=== PATIENT | female | born 1995 | race Caucasian/White ===

== ENCOUNTER 2017-10-29 09:45 | Outpatient (RCR) | payer OTHER, SELFPAY ==
--- NOTE | 2017-07-22 09:40 | PT.OIE ---
Current Diagnoses Sacrococcygeal disorders, not elsewhere classified (07/18/17) Provider Visit Care Team Role Provider Type Samantha Henry MD Attending Provider Physician Family Provider Primary Care Provider Specialty: Family Practice Address: [address] [place] [address], [id number] Email: [email or web address] Physical Therapy Initial Evaluation PT-OP-A Visit Information Start: 07/22/17 09:06 Freq: Status: Active Protocol: Document 07/18/17 11:15 [facility] (Rec: 07/22/17 09:38 [facility] [email or web address]) Out-Patient Physical Therapy Visit Information Visit Information Visit Type Initial Evaluation Visit Start Time 11:15 Visit Stop Time 12:00 Total Visit Minutes 45 Visit Number 1 Evaluation Information Evaluation Date 07/18/17 PT-OP-B Current Condition Start: 07/22/17 09:06 Freq: Status: Active Protocol: Document 07/18/17 11:15 [facility] (Rec: 07/22/17 09:38 [facility] [email or web address]) Current Condition History of Current Condition Onset Date March Current Complaints complaints of coccyx pain made worse with sitting History of Current Condition Bianca reports she began experiencing coccyx pain during intercourse in March. She has been having pain since that has not improved. 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 She does have a donut cushion for driving now that helps. Her symptoms have progressed to hip and SI pain as well now and she notes that jumping activities with her legs seperated increase her hip pain. She reports that she has never experienced tail bone pain before this episode Prior Treatments and Tests X-ray findings suggestive of anterior angulation with mild widening of the inferior coccygeal segments Treatment Goals Patient/Caregiver Goals Sandra has a goal of eliminating coccyx pain and being able to sit and drive without pain Current Functional Impairments (Reported) Functional Limitations- Work/School difficulty sitting for long durations to study and pain with driving PT-OP-C Subjective Start: 07/22/17 09:06 Freq: Status: Active Protocol: Document 07/18/17 11:15 [facility] (Rec: 07/22/17 09:38 [facility] [email or web address]) OP-PT Subjective Patient Comments Patient Comments Sandra reports pain in the coccyx rated 5/10 and pain across the SI joint rated 4/10 OP-PT Pain Assessment Pain Assessment Grid Paper Pain Assessment Grid Completed Yes Comments Pain Comments pain across the SI joint and coccyx PT-OP-F Manual Assessment Start: 07/22/17 09:06 Freq: Status: Active Protocol: Document 07/18/17 11:15 [facility] (Rec: 07/22/17 09:40 [facility] [email or web address]) Manual Assessments Soft Tissue Assessment Soft Tissue Mobility Assessment tightness of the piriformis right greater than left Joint Mobility Assessment Joint Mobility Assessment + ASLR test for SI instability L>R left leg longer in supine sacrum is rotated slightly to the left coccyx is sidebent to the left and flexed anteriorly PT-OP-J Posture/Palpation/Skin Start: 07/22/17 09:06 Freq: Status: Active Protocol: Document 07/18/17 11:15 [facility] (Rec: 07/22/17 09:38 [facility] [email or web address]) Palpation Assessment Location Two Palpation Location coccyx Palpation Findings Tenderness Palpation Details the coccyx is sidebend to the left and flexed anteriorly to papation One Palpation Location coccygeus muscle, obturator internus, piriformis Palpation Findings Soft Tissue Tightness Spasm Muscle Guarding Tenderness Palpation Details tenderness on either side of the coccyx and sacrum PT-OP-Q Treatments Start: 07/22/17 09:06 Freq: Status: Active Protocol: Document 07/18/17 11:15 [facility] (Rec: 07/22/17 09:38 [facility] [email or web address]) Therapeutic Exercises Supine Exercises 1 Supine Exercise Name HEP given: piriformis stretch, single knee to chest, and hamstring stretch Side bilateral Reps/Minutes hold 1-2 minutes each Manual Therapy Treatment Soft Tissue Mobilization 1 Body Location coccygeus musculature and obturator internus Mobilization Type Cross-Friction Myofascial Release Intensity/Depth Moderate Body Position Sidelying Joint Mobilizations 1 Joint inferior coccygeal joints side bend MET to the midline Direction towards the right Grade I Body Position Prone Comments contract relaxation of the pelvic floor with gentle mobilizations of the coccyx to the right PT-OP-R Modalities Start: 07/22/17 09:06 Freq: Status: Active Protocol: Document 07/18/17 11:15 [facility] (Rec: 07/22/17 09:38 [facility] [email or web address]) Ultrasound Therapy Treatment Left Treatment Duration (minutes) 8 Patient Position Prone Frequency Setting (mHz) 1 Mode Setting Continuous Intensity Setting (w/cm2) 1.5 Patient Tolerance Good Comment Treatment Comment ultrasound to the left coccygeus muscle PT-OP-T Assessment and Plan Start: 07/22/17 09:06 Freq: Status: Active Protocol: Document 07/18/17 11:15 [facility] (Rec: 07/22/17 09:38 [facility] [email or web address]) Physical Therapy Assessment Rehab Potential Rehabilitation Potential Excellent Evaluation Complexity Number of Personal Factors/Comorbidities 0 Number of Body Systems Impaired 1-2 Clinical Presentation at Evaluation Stable Impairments Impairments Functional Activities Pain Soft Tissue Mobility Strength Tone Goals Three Impairment left sidebent and forward bend coccyx Short Term Goal (STG) improve the alignement of the coccyx bone with stretches and manual therapy techniques STG Duration 5 weeks Two Impairment unstable SI joint with decreased transverse abdominal activation Short Term Goal (STG) The patient is educated on transverse abdominal stabilization and both march test and ASLR test is negative STG Duration 5 weeks One Impairment coccyx pain made worse with sitting and driving pain 5/10 Correction Goal (LTG) Bianca reports her pain levels have been reduced from 5/10 to 0-1/10 and she is able to sit and drive without increased pain LTG Duration 8 weeks Assessment Summary Assessment Sandra presents to physical therapy with signs and symptoms of coccyx dysfunction and muscle guarding around the coccyx. She is tight in the coccygeal musculature, piriformis and obturator internus from muscle spasm. The coccyx is palpated today to be left sidebend and forward flexed. I did begin with ultrasound and soft tissue work externally around the coccyx bone and sacrum. Bianca may benefit from a internal rectal coccyx release which I talked to her about doing next visit if she was comfortable with this. She was given a home program to begin stretching her posterior pelvic floor and hip musculature. She is also unstable in her SI joint and treatment will include improving core stability. Physical Therapy Plan Frequency and Duration Frequency of Treatment 1x/Week Duration of Treatment 8 weeks Plan of Care Start Date 07/18/17 Plan of Care End Date 09/12/17 Therapeutic Interventions Therapeutic Interventions Home Exercise Program Manual Therapy Neuromuscular Re-education Self-Care/Home Management Soft Tissue Mobilization Therapeutic Exercises Modalities Cold Pack/Ice Massage Ultrasound Provider Signature Date
--- NOTE | 2017-07-22 09:43 | PT.OPPOC ---
Current Diagnoses Sacrococcygeal disorders, not elsewhere classified (07/18/17) Provider Visit Care Team Role Provider Type Samantha Henry MD Attending Provider Physician Family Provider Primary Care Provider Specialty: Family Practice Address: [address] [place] [address], [phone] Email: [email or web address] Plan Of Care PT-OP-T Assessment and Plan Start: 07/22/17 09:06 Freq: Status: Active Protocol: Document 07/18/17 11:15 [facility] (Rec: 07/22/17 09:38 [facility] [email or web address]) Physical Therapy Assessment Rehab Potential Rehabilitation Potential Excellent Evaluation Complexity Number of Personal Factors/Comorbidities 0 Number of Body Systems Impaired 1-2 Clinical Presentation at Evaluation Stable Impairments Impairments Functional Activities Pain Soft Tissue Mobility Strength Tone Goals Three Impairment left sidebend and forward bend coccyx Short Term Goal (STG) improve the alignement of the coccyx bone with stretches and manual therapy techniques STG Duration 5 weeks Two Impairment unstable SI joint with decreased transverse abdominal activation Short Term Goal (STG) The patient is educated on transverse abdominal stabilization and both march test and ASLR test is negative STG Duration 5 weeks One Impairment coccyx pain made worse with sitting and driving pain 5/10 Director Of [employer] Goal (LTG) Bianca reports her pain levels have been reduced from 5/10 to 0-1/10 and she is able to sit and drive without increased pain LTG Duration 8 weeks Assessment Summary Assessment Sandra presents to physical therapy with signs and symptoms of cuccyx dysfunction and muscle guarding around the coccyx. She is tight in the coccygeal musculature, piriformis and obturator internus from muscle spasm. The coccyx is palpated today to be left sidebend and forward flexed. I did begin with ultrasound and soft tissue work externaly around the coccyx bone and sacrum. Bianca may benefit from a internal rectal coccyx release which I talked to her about doing next visit if she was comfortable with this. She was given a home program to begin streching her posterior pelvic floor and hip musculature. She is also unstable in her SI joint and treatment will include improving core stability. Physical Therapy Plan Frequency and Duration Frequency of Treatment 1x/Week Duration of Treatment 8 weeks Plan of Care Start Date 07/18/17 Plan of Care End Date 09/12/17 Therapeutic Interventions Therapeutic Interventions Home Exercise Program Manual Therapy Neuromuscular Re-education Self-Care/Home Management Soft Tissue Mobilization Therapeutic Exercises Modalities Cold Pack/Ice Massage Ultrasound Plan of Care Dates Plan of Care Start Date 07/18/17 Plan of Care End Date 09/12/17 Please Sign and Return: I have reviewed this Plan of Care and certify that the skilled therapy services above are required to meet the patient???s needs. Physician Signature Date Printed Name and Credentials
--- NOTE | 2017-07-24 14:17 | PT.OTN ---
Current Diagnoses Sacrococcygeal disorders, not elsewhere classified (07/24/17) Physical Therapy Treatment Note PT-OP-A Visit Information Start: 07/22/17 09:06 Freq: Status: Active Protocol: Document 07/24/17 14:08 [facility] (Rec: 07/24/17 14:14 [facility] [email or web address]) Out-Patient Physical Therapy Visit Information Visit Information Visit Type Treatment Note Visit Start Time 13:00 Visit Stop Time 13:45 Total Visit Minutes 45 Visit Number 2 Number of EMERGENCY MANAGEMENT SYSTEM DIRECTOR Visits 0 PT-OP-B Current Condition Start: 07/22/17 09:06 Freq: Status: Active Protocol: Document 07/18/17 11:15 [facility] (Rec: 07/22/17 09:38 [facility] [email or web address]) Current Condition History of Current Condition Onset Date March Current Complaints complaints of coccyx pain made worse with sitting History of Current Condition Bianca reports she began experiencing coccyx pain during intercourse in March. She has been having pain since that has not improved. 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 She does have a donut cushion for driving now that helps. Melecio symptoms ahve progressed to hip and SI pain as well now and she notes that jumping activities with her legs seperated increase her hip pain. She reports that she has never experienced tail bone pain before this episode Prior Treatments and Tests X-ray findings suggestive of anterior angulation with mild widening of the inferior coccygeal segments Treatment Goals Patient/Caregiver Goals Sandra has a goal of eliminating coccyx pain and being able to sit and drive without pain Current Functional Impairments (Reported) Functional Limitations- Work/School difficulty sitting for long durations to study and pain with driving PT-OP-C Subjective Start: 07/22/17 09:06 Freq: Status: Active Protocol: Document 07/24/17 14:08 [facility] (Rec: 07/24/17 14:14 [facility] [email or web address]) OP-PT Subjective Patient Comments Patient Comments Sandra reports her sacrum felt a little better following last visit Patient Reported Progress Improving PT-OP-F Manual Assessment Start: 07/22/17 09:06 Freq: Status: Active Protocol: Document 07/18/17 11:15 [facility] (Rec: 07/22/17 09:40 [facility] [email or web address]) Manual Assessments Soft Tissue Assessment Soft Tissue Mobility Assessment tightness of the piriformis right greater than left Joint Mobility Assessment Joint Mobility Assessment + ASLR test for SI instability L>R left leg longer in supine sacrum is rotated slightly to the left coccyx is sidebend to the left and flexed anteriorly PT-OP-J Posture/Palpation/Skin Start: 07/22/17 09:06 Freq: Status: Active Protocol: Document 07/18/17 11:15 [facility] (Rec: 07/22/17 09:38 [facility] [email or web address]) Palpation Assessment Location Two Palpation Location coccyx Palpation Findings Tenderness Palpation Details the coccyx is sidebend to the left and flexed anteriorly to papation One Palpation Location coccygeus muscle, obturator internus, piriformis Palpation Findings Soft Tissue Tightness Spasm Muscle Guarding Tenderness Palpation Details tenderness on either side of the coccyx and sacrum PT-OP-Q Treatments Start: 07/22/17 09:06 Freq: Status: Active Protocol: Document 07/24/17 14:14 [facility] (Rec: 07/24/17 14:16 [facility] [email or web address]) Manual Therapy Treatment Soft Tissue Mobilization 2 Body Location prone release to the sacral attachments and gluteals Mobilization Type Manual Lymphatic Drainage Strumming Comments release of the coccygeus and piriformis attachments 1 Body Location coccygeus musculature and obturator internus Mobilization Type Cross-Friction Myofascial Release Intensity/Depth Moderate Body Position Sidelying Joint Mobilizations 2 Joint internal coccyx release via the rectum Direction coccyx mobilization into a extended position Body Position right side Self-Care/Home Management Treatment Education Patient Education Home Exercise Program Other Education gave home program of down dog and cat cow along with happy baby stretch PT-OP-R Modalities Start: 07/22/17 09:06 Freq: Status: Active Protocol: Document 07/18/17 11:15 [facility] (Rec: 07/22/17 09:38 [facility] [email or web address]) Ultrasound Therapy Treatment Left Treatment Duration (minutes) 8 Patient Position Prone Frequency Setting (mHz) 1 Mode Setting Continuous Intensity Setting (w/cm2) 1.5 Patient Tolerance Good Comment Treatment Comment ultrasound to the left coccygeus muscle PT-OP-T Assessment and Plan Start: 07/22/17 09:06 Freq: Status: Active Protocol: Document 07/24/17 14:08 [facility] (Rec: 07/24/17 14:14 [facility] [email or web address]) Physical Therapy Assessment Impairments Impairments Functional Activities Pain Soft Tissue Mobility Strength Tone Assessment Summary Assessment With internal release of the coccyx bone via the rectum today there was good mobility of the joint to move into a posterior direction. Bianca tolerated treatment well and was advised to avoid pelvic floor contractions today as well as long duration sitting. She had decreased complaints of pain going into a squat following treatment. There was tenderness along the obturator internus bilaterally but the coccyx appears to be in a more neutral position rather than sidebent now. Physical Therapy Plan Therapeutic Interventions Therapeutic Interventions Home Exercise Program Manual Therapy Neuromuscular Re-education Self-Care/Home Management Soft Tissue Mobilization Therapeutic Exercises Modalities Cold Pack/Ice Massage Ultrasound Next Visit Focus/Plan Next Visit Plan focus on sacral and coccyx alignment Please Sign and Return: I have reviewed this Plan of Care and certify that the skilled therapy services above are required to meet the patient???s needs. Physician Signature Date Printed Name and Credentials Clinical Instructor Signature Printed Name and Credentials
--- NOTE | 2017-08-01 13:22 | PT.OTN ---
Current Diagnoses Sacrococcygeal disorders, not elsewhere classified (07/31/17) Physical Therapy Treatment Note PT-OP-A Visit Information Start: 07/22/17 09:06 Freq: Status: Active Protocol: Document 07/31/17 12:15 [facility] (Rec: 08/01/17 13:21 [facility] [email or web address]) Out-Patient Physical Therapy Visit Information Visit Information Visit Type Treatment Note Visit Start Time 12:15 Visit Stop Time 13:00 Total Visit Minutes 45 Visit Number 3 Number of ORAL SURGERY TECHNICIAN Visits 0 PT-OP-B Current Condition Start: 07/22/17 09:06 Freq: Status: Active Protocol: Document 07/18/17 11:15 [facility] (Rec: 07/22/17 09:38 [facility] [email or web address]) Current Condition History of Current Condition Onset Date March Current Complaints complaints of coccyx pain made worse with sitting History of Current Condition Bianca reports she began experiencing coccyx pain during intercourse in March. She has been having pain since that has not improved. 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 She does have a donut cushion for driving now that helps. Melecio symptoms ahve progressed to hip and SI pain as well now and she notes that jumping activities with her legs seperated increase her hip pain. She reports that she has never experienced tail bone pain before this episode Prior Treatments and Tests X-ray findings suggestive of anterior angulation with mild widening of the inferior coccygeal segments Treatment Goals Patient/Caregiver Goals Sandra has a goal of eliminating coccyx pain and being able to sit and drive without pain Current Functional Impairments (Reported) Functional Limitations- Work/School difficulty sitting for long durations to study and pain with driving PT-OP-C Subjective Start: 07/22/17 09:06 Freq: Status: Active Protocol: Document 07/31/17 12:15 [facility] (Rec: 08/01/17 13:21 [facility] [email or web address]) OP-PT Subjective Patient Comments Patient Comments Sandra reports she walked a lot following last visit and could tell things were better. Later on the next day she could feel some spasms higher up in her sacral region. Sit- stand is still uncomfortablebut overall things are better Patient Reported Progress Improving PT-OP-F Manual Assessment Start: 07/22/17 09:06 Freq: Status: Active Protocol: Document 07/18/17 11:15 [facility] (Rec: 07/22/17 09:40 [facility] [email or web address]) Manual Assessments Soft Tissue Assessment Soft Tissue Mobility Assessment tightness of the piriformis right greater than left Joint Mobility Assessment Joint Mobility Assessment + ASLR test for SI instability L>R left leg longer in supine sacrum is rotated slightly to the left coccyx is sidebend to the left and flexed anteriorly PT-OP-J Posture/Palpation/Skin Start: 07/22/17 09:06 Freq: Status: Active Protocol: Document 07/18/17 11:15 [facility] (Rec: 07/22/17 09:38 [facility] [email or web address]) Palpation Assessment Location Two Palpation Location coccyx Palpation Findings Tenderness Palpation Details the coccyx is sidebend to the left and flexed anteriorly to papation One Palpation Location coccygeus muscle, obturator internus, piriformis Palpation Findings Soft Tissue Tightness Spasm Muscle Guarding Tenderness Palpation Details tenderness on either side of the coccyx and sacrum PT-OP-Q Treatments Start: 07/22/17 09:06 Freq: Status: Active Protocol: Document 07/31/17 12:15 [facility] (Rec: 08/01/17 13:21 [facility] [email or web address]) Therapeutic Exercises Supine Exercises 2 Supine Exercise Name TA facilitation with marching 1 Supine Exercise Name HEP given: piriformis stretch, single knee to chest, and hamstring stretch Side bilateral Reps/Minutes hold 1-2 minutes each Other Exercises 2 Other Exercise Name down dog yoga pose 1 Other Exercise Name quadraped pelvic tilts, sidebends and thoracic rotation, noemy pose Reps/Minutes 10 reps for pelvic tilts, Sidebends and rotation Manual Therapy Treatment Soft Tissue Mobilization 2 Body Location prone release to the sacral attachments and gluteals Mobilization Type Myofascial Release Strumming Comments release of the coccygeus and piriformis attachments 1 Body Location coccygeus musculature and obturator internus Mobilization Type Cross-Friction Myofascial Release Intensity/Depth Moderate Body Position Sidelying Joint Mobilizations 2 Joint internal coccyx release via the rectum Direction coccyx mobilization into a extended position Body Position left side PT-OP-R Modalities Start: 07/22/17 09:06 Freq: Status: Active Protocol: Document 07/18/17 11:15 [facility] (Rec: 07/22/17 09:38 [facility] [email or web address]) Ultrasound Therapy Treatment Left Treatment Duration (minutes) 8 Patient Position Prone Frequency Setting (mHz) 1 Mode Setting Continuous Intensity Setting (w/cm2) 1.5 Patient Tolerance Good Comment Treatment Comment ultrasound to the left coccygeus muscle PT-OP-T Assessment and Plan Start: 07/22/17 09:06 Freq: Status: Active Protocol: Document 07/31/17 12:15 [facility] (Rec: 08/01/17 13:21 [facility] [email or web address]) Physical Therapy Assessment Assessment Summary Assessment improved position of the coccyx today, Sandra was tender to palpation with internal exam at the right coccygeus so time was spent here with coccygeus relaxation . I emphasized home flexibility program Physical Therapy Plan Frequency and Duration Frequency of Treatment 1x/Week Duration of Treatment 8 weeks Plan of Care Start Date 07/18/17 Plan of Care End Date 09/12/17 Therapeutic Interventions Therapeutic Interventions Home Exercise Program Manual Therapy Neuromuscular Re-education Self-Care/Home Management Soft Tissue Mobilization Therapeutic Exercises Modalities Cold Pack/Ice Massage Ultrasound Next Visit Focus/Plan Next Visit Plan recheck alighment next visit and pain with sit-stand, check left hip for posterior capsule glides and review TA facilitation with marching Please Sign and Return: I have reviewed this Plan of Care and certify that the skilled therapy services above are required to meet the patient???s needs. Physician Signature Date Printed Name and Credentials Clinical Instructor Signature Printed Name and Credentials
--- NOTE | 2017-08-07 14:25 | PT.OTN ---
Current Diagnoses Sacrococcygeal disorders, not elsewhere classified (08/07/17) Physical Therapy Treatment Note PT-OP-A Visit Information Start: 07/22/17 09:06 Freq: Status: Active Protocol: Document 08/07/17 14:15 [facility] (Rec: 08/07/17 14:25 [facility] [email or web address]) Out-Patient Physical Therapy Visit Information Visit Information Visit Type Treatment Note Visit Start Time 10:30 Visit Stop Time 11:15 Total Visit Minutes 45 Visit Number 4 PT-OP-B Current Condition Start: 07/22/17 09:06 Freq: Status: Active Protocol: Document 07/18/17 11:15 [facility] (Rec: 07/22/17 09:38 [facility] [email or web address]) Current Condition History of Current Condition Onset Date March Current Complaints complaints of coccyx pain made worse with sitting History of Current Condition Bianca reports she began experiencing coccyx pain during intercourse in March. She has been having pain since that has not improved. 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 She does have a donut cushion for driving now that helps. Melecio symptoms ahve progressed to hip and SI pain as well now and she notes that jumping activities with her legs seperated increase her hip pain. She reports that she has never experienced tail bone pain before this episode Prior Treatments and Tests X-ray findings suggestive of anterior angulation with mild widening of the inferior coccygeal segments Treatment Goals Patient/Caregiver Goals Sandra has a goal of eliminating coccyx pain and being able to sit and drive without pain Current Functional Impairments (Reported) Functional Limitations- Work/School difficulty sitting for long durations to study and pain with driving PT-OP-C Subjective Start: 07/22/17 09:06 Freq: Status: Active Protocol: Document 08/07/17 14:15 [facility] (Rec: 08/07/17 14:25 [facility] [email or web address]) OP-PT Subjective Patient Comments Patient Comments Bianca notes she hasn't had as much time to stretch this week with it being the last week of school. She is doing better but can feel symptoms in her sacrum on either side. She would like to start returning to running Patient Reported Progress Improving PT-OP-F Manual Assessment Start: 07/22/17 09:06 Freq: Status: Active Protocol: Document 07/18/17 11:15 [facility] (Rec: 07/22/17 09:40 [facility] [email or web address]) Manual Assessments Soft Tissue Assessment Soft Tissue Mobility Assessment tightness of the piriformis right greater than left Joint Mobility Assessment Joint Mobility Assessment + ASLR test for SI instability L>R left leg longer in supine sacrum is rotated slightly to the left coccyx is sidebend to the left and flexed anteriorly PT-OP-J Posture/Palpation/Skin Start: 07/22/17 09:06 Freq: Status: Active Protocol: Document 07/18/17 11:15 [facility] (Rec: 07/22/17 09:38 [facility] [email or web address]) Palpation Assessment Location Two Palpation Location coccyx Palpation Findings Tenderness Palpation Details the coccyx is sidebend to the left and flexed anteriorly to papation One Palpation Location coccygeus muscle, obturator internus, piriformis Palpation Findings Soft Tissue Tightness Spasm Muscle Guarding Tenderness Palpation Details tenderness on either side of the coccyx and sacrum PT-OP-Q Treatments Start: 07/22/17 09:06 Freq: Status: Active Protocol: Document 08/07/17 14:15 [facility] (Rec: 08/07/17 14:25 [facility] [email or web address]) Manual Therapy Treatment Soft Tissue Mobilization 2 Body Location prone release to the sacral attachments and gluteals Mobilization Type Myofascial Release Strumming Comments release of the coccygeus and piriformis attachments 1 Body Location coccygeus musculature and obturator internus Mobilization Type Cross-Friction Myofascial Release Intensity/Depth Moderate Body Position Sidelying PT-OP-R Modalities Start: 07/22/17 09:06 Freq: Status: Active Protocol: Document 08/07/17 14:15 [facility] (Rec: 08/07/17 14:25 [facility] [email or web address]) Ultrasound Therapy Treatment Left Treatment Duration (minutes) 8 Patient Position Prone Frequency Setting (mHz) 1 Mode Setting Continuous Intensity Setting (w/cm2) 1.5 Comments left lateral PRO attachments PT-OP-T Assessment and Plan Start: 07/22/17 09:06 Freq: Status: Active Protocol: Document 08/07/17 14:15 [facility] (Rec: 08/07/17 14:25 [facility] [email or web address]) Physical Therapy Assessment Assessment Summary Assessment high speed warper tender at the obturatur internus. I did give Sandra a dilator today to do her own self release in the coccygeal musculature and we talked about contrac/relax of the pelvic floor as the posterior pelvic floor is in spasm Physical Therapy Plan Frequency and Duration Frequency of Treatment 1x/Week Duration of Treatment 8 weeks Plan of Care Start Date 07/18/17 Plan of Care End Date 09/12/17 Therapeutic Interventions Therapeutic Interventions Home Exercise Program Manual Therapy Neuromuscular Re-education Self-Care/Home Management Soft Tissue Mobilization Therapeutic Exercises Modalities Cold Pack/Ice Massage Ultrasound Next Visit Focus/Plan Next Visit Plan recheck alighment next visit and pain with sit-stand, check left hip for posterior capsule glides and review TA facilitation with marching Please Sign and Return: I have reviewed this Plan of Care and certify that the skilled therapy services above are required to meet the patient?s needs. Physician Signature Date Printed Name and Credentials Clinical Instructor Signature Printed Name and Credentials
--- NOTE | 2017-08-15 11:40 | PT.OTN ---
Current Diagnoses Sacrococcygeal disorders, not elsewhere classified (08/14/17) Physical Therapy Treatment Note PT-OP-A Visit Information Start: 07/22/17 09:06 Freq: Status: Active Protocol: Document 08/14/17 10:45 [facility] (Rec: 08/15/17 11:39 [facility] [email or web address]) Out-Patient Physical Therapy Visit Information Visit Information Visit Type Treatment Note Visit Start Time 10:45 Visit Stop Time 11:35 Total Visit Minutes 50 Visit Number 5 Number of [employer]CH[employer]ER Visits 0 PT-OP-B Current Condition Start: 07/22/17 09:06 Freq: Status: Active Protocol: Document 07/18/17 11:15 [facility] (Rec: 07/22/17 09:38 [facility] [email or web address]) Current Condition History of Current Condition Onset Date March Current Complaints complaints of coccyx pain made worse with sitting History of Current Condition Bianca reports she began experiencing coccyx pain during intercourse in March. She has been having pain since that has not improved. 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 She does have a donut cushion for driving now that helps. Melecio symptoms ahve progressed to hip and SI pain as well now and she notes that jumping activities with her legs seperated increase her hip pain. She reports that she has never experienced tail bone pain before this episode Prior Treatments and Tests X-ray findings suggestive of anterior angulation with mild widening of the inferior coccygeal segments Treatment Goals Patient/Caregiver Goals Sandra has a goal of eliminating coccyx pain and being able to sit and drive without pain Current Functional Impairments (Reported) Functional Limitations- Work/School difficulty sitting for long durations to study and pain with driving PT-OP-C Subjective Start: 07/22/17 09:06 Freq: Status: Active Protocol: Document 08/14/17 10:45 [facility] (Rec: 08/15/17 11:39 [facility] [email or web address]) OP-PT Subjective Patient Comments Patient Comments Sandra reports that she is not having to use her donut cushion as much now but that she feels tightness in the sacral region Patient Reported Progress Improving PT-OP-F Manual Assessment Start: 07/22/17 09:06 Freq: Status: Active Protocol: Document 07/18/17 11:15 [facility] (Rec: 07/22/17 09:40 [facility] [email or web address]) Manual Assessments Soft Tissue Assessment Soft Tissue Mobility Assessment tightness of the piriformis right greater than left Joint Mobility Assessment Joint Mobility Assessment + ASLR test for SI instability L>R left leg longer in supine sacrum is rotated slightly to the left coccyx is sidebend to the left and flexed anteriorly PT-OP-J Posture/Palpation/Skin Start: 07/22/17 09:06 Freq: Status: Active Protocol: Document 07/18/17 11:15 [facility] (Rec: 07/22/17 09:38 [facility] [email or web address]) Palpation Assessment Location Two Palpation Location coccyx Palpation Findings Tenderness Palpation Details the coccyx is sidebend to the left and flexed anteriorly to papation One Palpation Location coccygeus muscle, obturator internus, piriformis Palpation Findings Soft Tissue Tightness Spasm Muscle Guarding Tenderness Palpation Details tenderness on either side of the coccyx and sacrum PT-OP-Q Treatments Start: 07/22/17 09:06 Freq: Status: Active Protocol: Document 08/14/17 10:45 [facility] (Rec: 08/15/17 11:39 [facility] [email or web address]) Therapeutic Exercises Supine Exercises 1 Supine Exercise Name HEP given: piriformis stretch, single knee to chest, and hamstring stretch Side bilateral Reps/Minutes hold 1-2 minutes each Other Exercises 5 Other Exercise Name ITB stretch Reps/Minutes 1-2 minutes Comments with strap 4 Other Exercise Name long sitting hamstring and low back stretch Reps/Minutes 1-2 minutes 3 Other Exercise Name full squat pelvic floor stretch Reps/Minutes hold 1-2 minutes 2 Other Exercise Name down dog yoga pose 1 Other Exercise Name quadraped pelvic tilts, sidebends and thoracic rotation, noemy pose Reps/Minutes 10 reps for pelvic tilts, Sidebends and rotation Manual Therapy Treatment Soft Tissue Mobilization 3 Body Location pelvic diaphragm external mobilization Comments MFR 2 Body Location prone release to the sacral attachments and gluteals Mobilization Type Myofascial Release Strumming Comments release of the coccygeus and piriformis attachments 1 Body Location coccygeus musculature and obturator internus Mobilization Type Cross-Friction Myofascial Release Intensity/Depth Moderate Body Position Sidelying Joint Mobilizations 3 Joint posterior capsule hip mobilization on the left PT-OP-R Modalities Start: 07/22/17 09:06 Freq: Status: Active Protocol: Document 08/14/17 10:45 [facility] (Rec: 08/15/17 11:39 [facility] [email or web address]) Ultrasound Therapy Treatment Left Treatment Duration (minutes) 8 Patient Position Prone Frequency Setting (mHz) 1 Mode Setting Continuous Intensity Setting (w/cm2) 1.5 Comments left lateral PRO attachments PT-OP-T Assessment and Plan Start: 07/22/17 09:06 Freq: Status: Active Protocol: Document 08/14/17 10:45 [facility] (Rec: 08/15/17 11:39 [facility] [email or web address]) Physical Therapy Assessment Assessment Summary Assessment worked a great deal on yoga poses today, trial of posterior hip capsule mobs as she tends to impinge with single knee to chest stretches . Sacrum likes to be locked in counter nutation so working on sacral nutation Physical Therapy Plan Frequency and Duration Frequency of Treatment 1x/Week Duration of Treatment 8 weeks Plan of Care Start Date 07/18/17 Plan of Care End Date 09/12/17 Therapeutic Interventions Therapeutic Interventions Home Exercise Program Manual Therapy Neuromuscular Re-education Self-Care/Home Management Soft Tissue Mobilization Therapeutic Exercises Modalities Cold Pack/Ice Massage Ultrasound Next Visit Focus/Plan Next Visit Plan keeping working on posterior hip capsule mobilizations and encouraging stretching for home. Work towards increased lumbar stabilization next visit Please Sign and Return: I have reviewed this Plan of Care and certify that the skilled therapy services above are required to meet the patient?s needs. Physician Signature Date Printed Name and Credentials Clinical Instructor Signature Printed Name and Credentials
--- NOTE | 2017-08-22 18:58 | PT.OTN ---
Current Diagnoses Sacrococcygeal disorders, not elsewhere classified (08/20/17) Physical Therapy Treatment Note PT-OP-A Visit Information Start: 07/22/17 09:06 Freq: Status: Active Protocol: Document 08/20/17 11:15 [facility] (Rec: 08/22/17 18:58 [facility] [email or web address]) Out-Patient Physical Therapy Visit Information Visit Information Visit Type Treatment Note Visit Start Time 11:15 Visit Stop Time 12:30 Total Visit Minutes 45 Visit Number 6 Number of EMERGENC[employer] SERVICE [employer]ORER Visits 0 PT-OP-B Current Condition Start: 07/22/17 09:06 Freq: Status: Active Protocol: Document 07/18/17 11:15 [facility] (Rec: 07/22/17 09:38 [facility] [email or web address]) Current Condition History of Current Condition Onset Date March Current Complaints complaints of coccyx pain made worse with sitting History of Current Condition Bianca reports she began experiencing coccyx pain during intercourse in March. She has been having pain since that has not improved. 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 She does have a donut cushion for driving now that helps. Melecio symptoms ahve progressed to hip and SI pain as well now and she notes that jumping activities with her legs seperated increase her hip pain. She reports that she has never experienced tail bone pain before this episode Prior Treatments and Tests X-ray findings suggestive of anterior angulation with mild widening of the inferior coccygeal segments Treatment Goals Patient/Caregiver Goals Sandra has a goal of eliminating coccyx pain and being able to sit and drive without pain Current Functional Impairments (Reported) Functional Limitations- Work/School difficulty sitting for long durations to study and pain with driving PT-OP-C Subjective Start: 07/22/17 09:06 Freq: Status: Active Protocol: Document 08/14/17 10:45 [facility] (Rec: 08/15/17 11:39 [facility] [email or web address]) OP-PT Subjective Patient Comments Patient Comments Sandra reports that she is not having to use her donut cushion as much now but that she feels tightness in the sacral region Patient Reported Progress Improving PT-OP-F Manual Assessment Start: 07/22/17 09:06 Freq: Status: Active Protocol: Document 07/18/17 11:15 [facility] (Rec: 07/22/17 09:40 [facility] [email or web address]) Manual Assessments Soft Tissue Assessment Soft Tissue Mobility Assessment tightness of the piriformis right greater than left Joint Mobility Assessment Joint Mobility Assessment + ASLR test for SI instability L>R left leg longer in supine sacrum is rotated slightly to the left coccyx is sidebend to the left and flexed anteriorly PT-OP-J Posture/Palpation/Skin Start: 07/22/17 09:06 Freq: Status: Active Protocol: Document 07/18/17 11:15 [facility] (Rec: 07/22/17 09:38 [facility] [email or web address]) Palpation Assessment Location Two Palpation Location coccyx Palpation Findings Tenderness Palpation Details the coccyx is sidebend to the left and flexed anteriorly to papation One Palpation Location coccygeus muscle, obturator internus, piriformis Palpation Findings Soft Tissue Tightness Spasm Muscle Guarding Tenderness Palpation Details tenderness on either side of the coccyx and sacrum PT-OP-Q Treatments Start: 07/22/17 09:06 Freq: Status: Active Protocol: Document 08/20/17 11:15 [facility] (Rec: 08/22/17 18:58 [facility] [email or web address]) Therapeutic Exercises Supine Exercises 2 Supine Exercise Name TA facilitation with marching 1 Supine Exercise Name HEP given: piriformis stretch, single knee to chest, and hamstring stretch Side bilateral Reps/Minutes hold 1-2 minutes each Other Exercises 1 Other Exercise Name quadraped pelvic tilts, sidebends and thoracic rotation, noemy pose Reps/Minutes 10 reps for pelvic tilts, Sidebends and rotation Manual Therapy Treatment Soft Tissue Mobilization 3 Body Location pelvic diaphragm external mobilization Comments MFR 2 Body Location prone release to the sacral attachments and gluteals Mobilization Type Myofascial Release Strumming Comments release of the coccygeus and piriformis attachments Joint Mobilizations 3 Joint posterior capsule hip mobilization on the left Comments with belt PT-OP-R Modalities Start: 07/22/17 09:06 Freq: Status: Active Protocol: Document 08/14/17 10:45 [facility] (Rec: 08/15/17 11:39 [facility] [email or web address]) Ultrasound Therapy Treatment Left Treatment Duration (minutes) 8 Patient Position Prone Frequency Setting (mHz) 1 Mode Setting Continuous Intensity Setting (w/cm2) 1.5 Comments left lateral PRO attachments PT-OP-T Assessment and Plan Start: 07/22/17 09:06 Freq: Status: Active Protocol: Document 08/20/17 11:15 [facility] (Rec: 08/22/17 18:58 [facility] [email or web address]) Physical Therapy Assessment Assessment Summary Assessment decreased pain with sitting, trial of tennis balls on either side of the sacrum for self MFR at home Physical Therapy Plan Frequency and Duration Frequency of Treatment 1x/Week Duration of Treatment 8 weeks Plan of Care Start Date 07/18/17 Plan of Care End Date 09/12/17 Therapeutic Interventions Therapeutic Interventions Home Exercise Program Manual Therapy Neuromuscular Re-education Self-Care/Home Management Soft Tissue Mobilization Therapeutic Exercises Modalities Cold Pack/Ice Massage Ultrasound Next Visit Focus/Plan Next Visit Plan keeping working on posterior hip capsule mobilizations and encouraging stretching for home. Work towards increased lumbar stabilization next visit
--- NOTE | 2017-09-10 17:47 | PT.OTN ---
Current Diagnoses Sacrococcygeal disorders, not elsewhere classified (09/10/17) Physical Therapy Treatment Note PT-OP-A Visit Information Start: 07/22/17 09:06 Freq: Status: Active Protocol: Document 09/10/17 10:30 [facility] (Rec: 09/10/17 17:45 [facility] [email or web address]) Out-Patient Physical Therapy Visit Information Visit Information Visit Type Treatment Note Visit Start Time 10:30 Visit Stop Time 11:15 Total Visit Minutes 45 Visit Number 7 Number of [employer] TEACHER Visits 0 PT-OP-B Current Condition Start: 07/22/17 09:06 Freq: Status: Active Protocol: Document 07/18/17 11:15 [facility] (Rec: 07/22/17 09:38 [facility] [email or web address]) Current Condition History of Current Condition Onset Date March Current Complaints complaints of coccyx pain made worse with sitting History of Current Condition Bianca reports she began experiencing coccyx pain during intercourse in March. She has been having pain since that has not improved. 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 She does have a donut cushion for driving now that helps. Melecio symptoms ahve progressed to hip and SI pain as well now and she notes that jumping activities with her legs seperated increase her hip pain. She reports that she has never experienced tail bone pain before this episode Prior Treatments and Tests X-ray findings suggestive of anterior angulation with mild widening of the inferior coccygeal segments Treatment Goals Patient/Caregiver Goals Sandra has a goal of eliminating coccyx pain and being able to sit and drive without pain Current Functional Impairments (Reported) Functional Limitations- Work/School difficulty sitting for long durations to study and pain with driving PT-OP-C Subjective Start: 07/22/17 09:06 Freq: Status: Active Protocol: Document 09/10/17 10:30 [facility] (Rec: 09/10/17 17:45 [facility] [email or web address]) OP-PT Subjective Patient Comments Patient Comments Sandra reports her tail bone is better overall she is feeling residual sacral discomfort and tightness in her hips Patient Reported Progress Improving PT-OP-F Manual Assessment Start: 07/22/17 09:06 Freq: Status: Active Protocol: Document 07/18/17 11:15 [facility] (Rec: 07/22/17 09:40 [facility] [email or web address]) Manual Assessments Soft Tissue Assessment Soft Tissue Mobility Assessment tightness of the piriformis right greater than left Joint Mobility Assessment Joint Mobility Assessment + ASLR test for SI instability L>R left leg longer in supine sacrum is rotated slightly to the left coccyx is sidebend to the left and flexed anteriorly PT-OP-J Posture/Palpation/Skin Start: 07/22/17 09:06 Freq: Status: Active Protocol: Document 07/18/17 11:15 [facility] (Rec: 07/22/17 09:38 [facility] [email or web address]) Palpation Assessment Location Two Palpation Location coccyx Palpation Findings Tenderness Palpation Details the coccyx is sidebend to the left and flexed anteriorly to papation One Palpation Location coccygeus muscle, obturator internus, piriformis Palpation Findings Soft Tissue Tightness Spasm Muscle Guarding Tenderness Palpation Details tenderness on either side of the coccyx and sacrum PT-OP-Q Treatments Start: 07/22/17 09:06 Freq: Status: Active Protocol: Document 09/10/17 10:30 [facility] (Rec: 09/10/17 17:45 [facility] [email or web address]) Therapeutic Exercises Supine Exercises 2 Supine Exercise Name TA facilitation with marching Comments level 1 b 1 Supine Exercise Name HEP given: piriformis stretch, single knee to chest, and hamstring stretch Side bilateral Reps/Minutes hold 1-2 minutes each Sidelying Exercises 1 Sidelying Exercise Name clam shells Reps/Minutes 3 x 10 reps Standing Exercises 2 Standing Exercise Name standing single leg squats Comments sideways and backwards 1 Standing Exercise Name standing single leg blance with gluteus medius activation Other Exercises 6 Other Exercise Name quadraped TA activation with opposite arm and opposite leg extensions 1 Other Exercise Name quadraped pelvic tilts, sidebends and thoracic rotation, noemy pose Reps/Minutes 10 reps for pelvic tilts, Sidebends and rotation Manual Therapy Treatment Joint Mobilizations 3 Joint posterior capsule hip mobilization on the left Comments with belt PT-OP-R Modalities Start: 07/22/17 09:06 Freq: Status: Active Protocol: Document 08/14/17 10:45 [facility] (Rec: 08/15/17 11:39 [facility] [email or web address]) Ultrasound Therapy Treatment Left Treatment Duration (minutes) 8 Patient Position Prone Frequency Setting (mHz) 1 Mode Setting Continuous Intensity Setting (w/cm2) 1.5 Comments left lateral PRO attachments PT-OP-T Assessment and Plan Start: 07/22/17 09:06 Freq: Status: Active Protocol: Document 09/10/17 10:30 [facility] (Rec: 09/10/17 17:45 [facility] [email or web address]) Physical Therapy Assessment Assessment Summary Assessment worked on gluteus medius activation today in standing, single leg squats are a challenge for Bianca. Still getting some anterior hip capsule impingement but feel she is ready for more dynamic strengthening now. Physical Therapy Plan Frequency and Duration Frequency of Treatment 1x/Week Duration of Treatment 8 weeks Plan of Care Start Date 07/18/17 Plan of Care End Date 09/12/17 Therapeutic Interventions Therapeutic Interventions Home Exercise Program Manual Therapy Neuromuscular Re-education Self-Care/Home Management Soft Tissue Mobilization Therapeutic Exercises Modalities Cold Pack/Ice Massage Ultrasound Next Visit Focus/Plan Next Note Type Progress Note Next Visit Plan keeping working on posterior hip capsule mobilizations and encouraging stretching for home. Work towards increased lumbar stabilization and standing stabilization of the gluteus medius
--- NOTE | 2017-09-17 17:44 | PT.OPPOC ---
Current Diagnoses Sacrococcygeal disorders, not elsewhere classified (09/17/17) Provider Visit Care Team Role Provider Type Samantha Henry MD Attending Provider Physician Family Provider Primary Care Provider Specialty: Family Practice Address: [address] [place] [address], [id number] Email: [email or web address] Plan Of Care PT-OP-T Assessment and Plan Start: 07/22/17 09:06 Freq: Status: Active Protocol: Document 09/17/17 17:18 [facility] (Rec: 09/17/17 17:43 [facility] [email or web address]) Physical Therapy Assessment Assessment Summary Assessment Overall Sandra has decreased complaints of pain. Her coccyx bone is now aligned and she has decreased tenderness overall over the tailbone. At this point we are working on pelvic stabilization and relaxation of the pelvic floor musculature that was guarded. Today her left obturator internus was tight. She would benefit from continued PT focusing on TA stabilization and gluteus medius activation as well as relaxed awareness of the pelvic floor. Physical Therapy Plan Frequency and Duration Frequency of Treatment 1x/Week Duration of Treatment 8 weeks Plan of Care Start Date 09/17/17 Plan of Care End Date 11/12/17 Therapeutic Interventions Therapeutic Interventions Home Exercise Program Manual Therapy Neuromuscular Re-education Self-Care/Home Management Soft Tissue Mobilization Therapeutic Exercises Modalities Cold Pack/Ice Massage Ultrasound Next Visit Focus/Plan Next Note Type Treatment Note Next Visit Plan continue to focus on pelvic stabilization and core stabilization exercises as well as MFR for the tight pelvic floor. Plan of Care Dates Plan of Care Start Date 09/17/17 Plan of Care End Date 11/12/17 Please Sign and Return: I have reviewed this Plan of Care and certify that the skilled therapy services above are required to meet the patient?s needs. Physician Signature Date Printed Name and Credentials Clinical Instructor Signature Printed Name and Credentials
--- NOTE | 2017-09-24 08:59 | PT.OTN ---
Current Diagnoses Sacrococcygeal disorders, not elsewhere classified (09/17/17) Physical Therapy Treatment Note PT-OP-A Visit Information Start: 07/22/17 09:06 Freq: Status: Active Protocol: Document 09/17/17:18 [facility] (Rec: 09/17/17 17:43 [facility] [email or web address]) Out-Patient Physical Therapy Visit Information Visit Information Visit Type Treatment Note Visit Start Time 11:20 Visit Stop Time 12:00 Total Visit Minutes 40 Visit Number 8 Number of DIRECTOR DATA ARCHITECTURE Visits 0 PT-OP-B Current Condition Start: 07/22/17 09:06 Freq: Status: Active Protocol: Document 07/18/17 11:15 [facility] (Rec: 07/22/17 09:38 [facility] [email or web address]) Current Condition History of Current Condition Onset Date March Current Complaints complaints of coccyx pain made worse with sitting History of Current Condition Bianca reports she began experiencing coccyx pain during intercourse in March. She has been having pain since that has not improved. 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 She does have a donut cushion for driving now that helps. Melecio symptoms ahve progressed to hip and SI pain as well now and she notes that jumping activities with her legs seperated increase her hip pain. She reports that she has never experienced tail bone pain before this episode Prior Treatments and Tests X-ray findings suggestive of anterior angulation with mild widening of the inferior coccygeal segments Treatment Goals Patient/Caregiver Goals Sandra has a goal of eliminating coccyx pain and being able to sit and drive without pain Current Functional Impairments (Reported) Functional Limitations- Work/School difficulty sitting for long durations to study and pain with driving PT-OP-C Subjective Start: 07/22/17 09:06 Freq: Status: Active Protocol: Document 09/17/17:18 [facility] (Rec: 09/17/17 17:43 [facility] [email or web address]) OP-PT Subjective Patient Comments Patient Comments Bianca reports she biked and swam more this week. She was a little sore following biking but then felt like her pelvic floor tightened. PT-OP-F Manual Assessment Start: 07/22/17 09:06 Freq: Status: Active Protocol: Document 07/18/17 11:15 [facility] (Rec: 07/22/17 09:40 [facility] [email or web address]) Manual Assessments Soft Tissue Assessment Soft Tissue Mobility Assessment tightness of the piriformis right greater than left Joint Mobility Assessment Joint Mobility Assessment + ASLR test for SI instability L>R left leg longer in supine sacrum is rotated slightly to the left coccyx is sidebend to the left and flexed anteriorly PT-OP-J Posture/Palpation/Skin Start: 07/22/17 09:06 Freq: Status: Active Protocol: Document 07/18/17 11:15 [facility] (Rec: 07/22/17 09:38 [facility] [email or web address]) Palpation Assessment Location Two Palpation Location coccyx Palpation Findings Tenderness Palpation Details the coccyx is sidebend to the left and flexed anteriorly to papation One Palpation Location coccygeus muscle, obturator internus, piriformis Palpation Findings Soft Tissue Tightness Spasm Muscle Guarding Tenderness Palpation Details tenderness on either side of the coccyx and sacrum PT-OP-Q Treatments Start: 07/22/17 09:06 Freq: Status: Active Protocol: Document 09/17/17 17:18 [facility] (Rec: 09/17/17 17:43 [facility] [email or web address]) Therapeutic Exercises Supine Exercises 2 Supine Exercise Name TA facilitation with marching and added heel slides Comments level 1 b, level 2 Sidelying Exercises 2 Sidelying Exercise Name sidelying hip abduction Reps/Minutes 2 x 10 reps 1 Sidelying Exercise Name clam shells Reps/Minutes 3 x 10 reps Standing Exercises 2 Standing Exercise Name standing single leg squats Comments sideways and backwards Other Exercises 3 Other Exercise Name full squat pelvic floor stretch Reps/Minutes hold 1-2 minutes Manual Therapy Treatment Soft Tissue Mobilization 4 Body Location sidelying MFR to the obturator internus Body Position Sidelying 3 Body Location pelvic diaphragm external mobilization Comments MFR Joint Mobilizations 3 Joint posterior capsule hip mobilization on the left Comments with belt PT-OP-R Modalities Start: 07/22/17 09:06 Freq: Status: Active Protocol: Document 08/14/17 10:45 [facility] (Rec: 08/15/17 11:39 [facility] [email or web address]) Ultrasound Therapy Treatment Left Treatment Duration (minutes) 8 Patient Position Prone Frequency Setting (mHz) 1 Mode Setting Continuous Intensity Setting (w/cm2) 1.5 Comments left lateral PRO attachments PT-OP-T Assessment and Plan Start: 07/22/17 09:06 Freq: Status: Active Protocol: Document 09/17/17 17:18 [facility] (Rec: 09/17/17 17:43 [facility] [email or web address]) Physical Therapy Assessment Assessment Summary Assessment OVerall Sandra has decreased complaints of pain. Her coccyx bone is now aligned and she has decreased tenderness overall over the tailbone. At this point we are working on pelvic stabilization and relaxation of the pelvic floor musculature that was guarded. Today her left obturator internus was tight. She would benefit from continued PT focusing on TA stabilization and gluteud medius activation as well as relaxed awareness of the pelvic floor. Physical Therapy Plan Frequency and Duration Frequency of Treatment 1x/Week Duration of Treatment 8 weeks Plan of Care Start Date 09/17/17 Plan of Care End Date 11/12/17 Therapeutic Interventions Therapeutic Interventions Home Exercise Program Manual Therapy Neuromuscular Re-education Self-Care/Home Management Soft Tissue Mobilization Therapeutic Exercises Modalities Cold Pack/Ice Massage Ultrasound Next Visit Focus/Plan Next Note Type Treatment Note Next Visit Plan continue to focus on pelvic stabilization and core stabilization exercises as well as MFR for the tight pelvic floor.
--- NOTE | 2017-09-24 13:13 | PT.OTN ---
Current Diagnoses Sacrococcygeal disorders, not elsewhere classified (09/24/17) Physical Therapy Treatment Note PT-OP-A Visit Information Start: 07/22/17 09:06 Freq: Status: Active Protocol: Document 09/24/17 13:06 [facility] (Rec: 09/24/17 13:13 [facility] [email or web address]) Out-Patient Physical Therapy Visit Information Visit Information Visit Type Treatment Note Visit Start Time 11:25 Visit Stop Time 12:00 Total Visit Minutes 35 Visit Number 9 Number of TRUCK LOADER Visits 0 PT-OP-B Current Condition Start: 07/22/17 09:06 Freq: Status: Active Protocol: Document 07/18/17 11:15 [facility] (Rec: 07/22/17 09:38 [facility] [email or web address]) Current Condition History of Current Condition Onset Date March Current Complaints complaints of coccyx pain made worse with sitting History of Current Condition Bianca reports she began experiencing coccyx pain during intercourse in March. She has been having pain since that has not improved. 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 She does have a donut cushion for driving now that helps. Melecio symptoms ahve progressed to hip and SI pain as well now and she notes that jumping activities with her legs seperated increase her hip pain. She reports that she has never experienced tail bone pain before this episode Prior Treatments and Tests X-ray findings suggestive of anterior angulation with mild widening of the inferior coccygeal segments Treatment Goals Patient/Caregiver Goals Sandra has a goal of eliminating coccyx pain and being able to sit and drive without pain Current Functional Impairments (Reported) Functional Limitations- Work/School difficulty sitting for long durations to study and pain with driving PT-OP-C Subjective Start: 07/22/17 09:06 Freq: Status: Active Protocol: Document 09/24/17 13:06 [facility] (Rec: 09/24/17 13:13 [facility] [email or web address]) OP-PT Subjective Patient Comments Patient Comments still feeling complaints of soreness in the sacral region not so much coccyx bone but sacrum. Sandra reports not using her cushion to sit and she could tell she didn't have it. Patient Reported Progress Same PT-OP-F Manual Assessment Start: 07/22/17 09:06 Freq: Status: Active Protocol: Document 07/18/17 11:15 [facility] (Rec: 07/22/17 09:40 [facility] [email or web address]) Manual Assessments Soft Tissue Assessment Soft Tissue Mobility Assessment tightness of the piriformis right greater than left Joint Mobility Assessment Joint Mobility Assessment + ASLR test for SI instability L>R left leg longer in supine sacrum is rotated slightly to the left coccyx is sidebend to the left and flexed anteriorly PT-OP-J Posture/Palpation/Skin Start: 07/22/17 09:06 Freq: Status: Active Protocol: Document 07/18/17 11:15 [facility] (Rec: 07/22/17 09:38 [facility] [email or web address]) Palpation Assessment Location Two Palpation Location coccyx Palpation Findings Tenderness Palpation Details the coccyx is sidebend to the left and flexed anteriorly to papation One Palpation Location coccygeus muscle, obturator internus, piriformis Palpation Findings Soft Tissue Tightness Spasm Muscle Guarding Tenderness Palpation Details tenderness on either side of the coccyx and sacrum PT-OP-Q Treatments Start: 07/22/17 09:06 Freq: Status: Active Protocol: Document 09/24/17 13:06 [facility] (Rec: 09/24/17 13:13 [facility] [email or web address]) Therapeutic Exercises Supine Exercises 3 Supine Exercise Name pelvic floor long holds and 10 second relaxation 2 Supine Exercise Name TA facilitation with marching and added heel slides Comments level 1 b, level 2 1 Supine Exercise Name HEP given: piriformis stretch, single knee to chest, and hamstring stretch Side bilateral Reps/Minutes hold 1-2 minutes each Other Exercises 7 Other Exercise Name noemy pose with pelvic floor relaxation Neuro Re-Education Treatment Other Activities 1 Details pelvic floor awareness with EMG biofeedback Comments down training of the pelvic floor on EMG with relaxed awareness of the posterior martinez of the pelvic floor as well as anterior pelvic floor recruitment PT-OP-R Modalities Start: 07/22/17 09:06 Freq: Status: Active Protocol: Document 08/14/17 10:45 [facility] (Rec: 08/15/17 11:39 [facility] [email or web address]) Ultrasound Therapy Treatment Left Treatment Duration (minutes) 8 Patient Position Prone Frequency Setting (mHz) 1 Mode Setting Continuous Intensity Setting (w/cm2) 1.5 Comments left lateral PRO attachments PT-OP-T Assessment and Plan Start: 07/22/17 09:06 Freq: Status: Active Protocol: Document 09/24/17 13:06 [facility] (Rec: 09/24/17 13:13 [facility] [email or web address]) Physical Therapy Assessment Assessment Summary Assessment elevated resting tone on EMG biofeedback today but Sandra was able to relax to baseline with neuro-rededucation. This chronic tightness maybe contributing to her sacral pain. Her home program is to work on contract relax of the pelvic floor Physical Therapy Plan Frequency and Duration Frequency of Treatment 1x/Week Duration of Treatment 8 weeks Plan of Care Start Date 09/17/17 Plan of Care End Date 11/12/17 Therapeutic Interventions Therapeutic Interventions Home Exercise Program Manual Therapy Neuromuscular Re-education Self-Care/Home Management Soft Tissue Mobilization Therapeutic Exercises Modalities Cold Pack/Ice Massage Ultrasound Next Visit Focus/Plan Next Note Type Treatment Note Next Visit Plan continue to focus on pelvic stabilization and core stabilization exercises as well as MFR for the tight pelvic floor.
--- NOTE | 2017-10-04 06:25 | PT.OTN ---
Current Diagnoses Sacrococcygeal disorders, not elsewhere classified (10/03/17) Physical Therapy Treatment Note PT-OP-A Visit Information Start: 07/22/17 09:06 Freq: Status: Active Protocol: Document 10/04/17 06:18 [facility] (Rec: 10/04/17 06:25 [facility] [email or web address]) Out-Patient Physical Therapy Visit Information Visit Information Visit Type Treatment Note Visit Start Time 11:15 Visit Stop Time 12:00 Total Visit Minutes 45 Visit Number 10 Number of DIRECTOR BANKING Visits 0 PT-OP-B Current Condition Start: 07/22/17 09:06 Freq: Status: Active Protocol: Document 07/18/17 11:15 [facility] (Rec: 07/22/17 09:38 [facility] [email or web address]) Current Condition History of Current Condition Onset Date March Current Complaints complaints of coccyx pain made worse with sitting History of Current Condition Bianca reports she began experiencing coccyx pain during intercourse in March. She has been having pain since that has not improved. 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 She does have a donut cushion for driving now that helps. Melecio symptoms ahve progressed to hip and SI pain as well now and she notes that jumping activities with her legs seperated increase her hip pain. She reports that she has never experienced tail bone pain before this episode Prior Treatments and Tests X-ray findings suggestive of anterior angulation with mild widening of the inferior coccygeal segments Treatment Goals Patient/Caregiver Goals Sandra has a goal of eliminating coccyx pain and being able to sit and drive without pain Current Functional Impairments (Reported) Functional Limitations- Work/School difficulty sitting for long durations to study and pain with driving PT-OP-C Subjective Start: 07/22/17 09:06 Freq: Status: Active Protocol: Document 09/24/17 13:06 [facility] (Rec: 09/24/17 13:13 [facility] [email or web address]) OP-PT Subjective Patient Comments Patient Comments still feeling complaints of soreness in the sacral region not so much coccyx bone but sacrum. Sandra reports not using her cushion to sit and she could tell she didn't have it. Patient Reported Progress Same PT-OP-F Manual Assessment Start: 07/22/17 09:06 Freq: Status: Active Protocol: Document 07/18/17 11:15 [facility] (Rec: 07/22/17 09:40 [facility] [email or web address]) Manual Assessments Soft Tissue Assessment Soft Tissue Mobility Assessment tightness of the piriformis right greater than left Joint Mobility Assessment Joint Mobility Assessment + ASLR test for SI instability L>R left leg longer in supine sacrum is rotated slightly to the left coccyx is sidebend to the left and flexed anteriorly PT-OP-J Posture/Palpation/Skin Start: 07/22/17 09:06 Freq: Status: Active Protocol: Document 07/18/17 11:15 [facility] (Rec: 07/22/17 09:38 [facility] [email or web address]) Palpation Assessment Location Two Palpation Location coccyx Palpation Findings Tenderness Palpation Details the coccyx is sidebend to the left and flexed anteriorly to papation One Palpation Location coccygeus muscle, obturator internus, piriformis Palpation Findings Soft Tissue Tightness Spasm Muscle Guarding Tenderness Palpation Details tenderness on either side of the coccyx and sacrum PT-OP-Q Treatments Start: 07/22/17 09:06 Freq: Status: Active Protocol: Document 10/04/17 06:18 [facility] (Rec: 10/04/17 06:25 [facility] [email or web address]) Therapeutic Exercises Supine Exercises 4 Supine Exercise Name iliopsoas stretching in supine and sidelying with manual assistance 2 Supine Exercise Name TA facilitation with marching and added heel slides Comments level 1 b, level 2 1 Supine Exercise Name HEP given: piriformis stretch, single knee to chest, and hamstring stretch Manual Therapy Treatment Soft Tissue Mobilization 2 Body Location prone pifirmormis release on the left with pin and stretch Body Position Prone Joint Mobilizations 3 Joint posterior capsule hip mobilization on the left Comments with belt 2 Joint hip distraction with active hip IR PT-OP-R Modalities Start: 07/22/17 09:06 Freq: Status: Active Protocol: Document 08/14/17 10:45 [facility] (Rec: 08/15/17 11:39 [facility] [email or web address]) Ultrasound Therapy Treatment Left Treatment Duration (minutes) 8 Patient Position Prone Frequency Setting (mHz) 1 Mode Setting Continuous Intensity Setting (w/cm2) 1.5 Comments left lateral PRO attachments PT-OP-T Assessment and Plan Start: 07/22/17 09:06 Freq: Status: Active Protocol: Document 10/04/17 06:18 [facility] (Rec: 10/04/17 06:25 [facility] [email or web address]) Physical Therapy Assessment Assessment Summary Assessment hip capsule tightness is still present but decreased overall pain in the tail bone and coccyx. Sandra was able to run without pain. Encouraging home stabilization and stretching program Physical Therapy Plan Frequency and Duration Frequency of Treatment 1x/Week Duration of Treatment 8 weeks Plan of Care Start Date 09/17/17 Plan of Care End Date 11/12/17 Therapeutic Interventions Therapeutic Interventions Home Exercise Program Manual Therapy Neuromuscular Re-education Self-Care/Home Management Soft Tissue Mobilization Therapeutic Exercises Modalities Cold Pack/Ice Massage Ultrasound Next Visit Focus/Plan Next Note Type Treatment Note Next Visit Plan continue to focus on pelvic stabilization and core stabilization exercises as well as MFR for the tight pelvic floor.
--- NOTE | 2017-10-16 11:05 | PT.OTN ---
Current Diagnoses Sacrococcygeal disorders, not elsewhere classified (10/15/17) Physical Therapy Treatment Note PT-OP-A Visit Information Start: 07/22/17 09:06 Freq: Status: Active Protocol: Document 10/15/17 10:30 [facility] (Rec: 10/16/17 11:04 [facility] [email or web address]) Out-Patient Physical Therapy Visit Information Visit Information Visit Type Treatment Note Visit Start Time 10:30 Visit Stop Time 11:15 Total Visit Minutes 45 Visit Number 11 Number of FINANCIAL INSTITUTION TREASURER Visits 0 PT-OP-B Current Condition Start: 07/22/17 09:06 Freq: Status: Active Protocol: Document 07/18/17 11:15 [facility] (Rec: 07/22/17 09:38 [facility] [email or web address]) Current Condition History of Current Condition Onset Date March Current Complaints complaints of coccyx pain made worse with sitting History of Current Condition Bianca reports she began experiencing coccyx pain during intercourse in March. She has been having pain since that has not improved. 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 She does have a donut cushion for driving now that helps. Melecio symptoms ahve progressed to hip and SI pain as well now and she notes that jumping activities with her legs seperated increase her hip pain. She reports that she has never experienced tail bone pain before this episode Prior Treatments and Tests X-ray findings suggestive of anterior angulation with mild widening of the inferior coccygeal segments Treatment Goals Patient/Caregiver Goals Sandra has a goal of eliminating coccyx pain and being able to sit and drive without pain Current Functional Impairments (Reported) Functional Limitations- Work/School difficulty sitting for long durations to study and pain with driving PT-OP-C Subjective Start: 07/22/17 09:06 Freq: Status: Active Protocol: Document 10/15/17 10:30 [facility] (Rec: 10/16/17 11:04 [facility] [email or web address]) OP-PT Subjective Patient Comments Patient Comments overall tail bone symptoms are better but still has complaints of sacral tightness . PT-OP-F Manual Assessment Start: 07/22/17 09:06 Freq: Status: Active Protocol: Document 07/18/17 11:15 [facility] (Rec: 07/22/17 09:40 [facility] [email or web address]) Manual Assessments Soft Tissue Assessment Soft Tissue Mobility Assessment tightness of the piriformis right greater than left Joint Mobility Assessment Joint Mobility Assessment + ASLR test for SI instability L>R left leg longer in supine sacrum is rotated slightly to the left coccyx is sidebend to the left and flexed anteriorly PT-OP-J Posture/Palpation/Skin Start: 07/22/17 09:06 Freq: Status: Active Protocol: Document 07/18/17 11:15 [facility] (Rec: 07/22/17 09:38 [facility] [email or web address]) Palpation Assessment Location Two Palpation Location coccyx Palpation Findings Tenderness Palpation Details the coccyx is sidebend to the left and flexed anteriorly to papation One Palpation Location coccygeus muscle, obturator internus, piriformis Palpation Findings Soft Tissue Tightness Spasm Muscle Guarding Tenderness Palpation Details tenderness on either side of the coccyx and sacrum PT-OP-Q Treatments Start: 07/22/17 09:06 Freq: Status: Active Protocol: Document 10/15/17 10:30 [facility] (Rec: 10/16/17 11:04 [facility] [email or web address]) Manual Therapy Treatment Soft Tissue Mobilization 2 Body Location prone pifirmormis release on the left with pin and stretch Body Position Prone 1 Body Location prone release to the lumbar paraspinals and gluteals around the sacrum Body Position Prone Joint Mobilizations 3 Joint posterior capsule hip mobilization on the left 1 Joint prone sacral realse into counter nutation Self-Care/Home Management Treatment Education Patient Education Home Exercise Program PT-OP-R Modalities Start: 07/22/17 09:06 Freq: Status: Active Protocol: Document 08/14/17 10:45 [facility] (Rec: 08/15/17 11:39 [facility] [email or web address]) Ultrasound Therapy Treatment Left Treatment Duration (minutes) 8 Patient Position Prone Frequency Setting (mHz) 1 Mode Setting Continuous Intensity Setting (w/cm2) 1.5 Comments left lateral PRO attachments PT-OP-T Assessment and Plan Start: 07/22/17 09:06 Freq: Status: Active Protocol: Document 10/15/17 10:30 [facility] (Rec: 10/16/17 11:04 [facility] [email or web address]) Physical Therapy Assessment Assessment Summary Assessment continued decrease in overall coccyx pain, Sandra tends to have sacral nutation and does well with counter nutation techniques. Less c/o hip pinching with end range hip flexion today Physical Therapy Plan Frequency and Duration Frequency of Treatment 1x/Week Duration of Treatment 8 weeks Plan of Care Start Date 09/17/17 Plan of Care End Date 11/12/17 Therapeutic Interventions Therapeutic Interventions Home Exercise Program Manual Therapy Neuromuscular Re-education Self-Care/Home Management Soft Tissue Mobilization Therapeutic Exercises Modalities Cold Pack/Ice Massage Ultrasound Next Visit Focus/Plan Next Note Type Treatment Note Next Visit Plan continue to focus on pelvic stabilization and core stabilization exercises as well as MFR for the tight pelvic floor.
--- NOTE | 2017-10-22 13:07 | PT.OTN ---
Current Diagnoses Sacrococcygeal disorders, not elsewhere classified (10/22/17) Physical Therapy Treatment Note PT-OP-A Visit Information Start: 07/22/17 09:06 Freq: Status: Active Protocol: Document 10/22/17 13:02 [facility] (Rec: 10/22/17 13:07 [facility] [email or web address]) Out-Patient Physical Therapy Visit Information Visit Information Visit Type Treatment Note Visit Start Time 10:30 Visit Stop Time 11:15 Total Visit Minutes 45 Visit Number 12 Number of VEHICLE INSPECTOR Visits 0 PT-OP-B Current Condition Start: 07/22/17 09:06 Freq: Status: Active Protocol: Document 07/18/17 11:15 [facility] (Rec: 07/22/17 09:38 [facility] [email or web address]) Current Condition History of Current Condition Onset Date March Current Complaints complaints of coccyx pain made worse with sitting History of Current Condition Bianca reports she began experiencing coccyx pain during intercourse in March. She has been having pain since that has not improved. 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 She does have a donut cushion for driving now that helps. Melecio symptoms ahve progressed to hip and SI pain as well now and she notes that jumping activities with her legs seperated increase her hip pain. She reports that she has never experienced tail bone pain before this episode Prior Treatments and Tests X-ray findings suggestive of anterior angulation with mild widening of the inferior coccygeal segments Treatment Goals Patient/Caregiver Goals Sandra has a goal of eliminating coccyx pain and being able to sit and drive without pain Current Functional Impairments (Reported) Functional Limitations- Work/School difficulty sitting for long durations to study and pain with driving PT-OP-C Subjective Start: 07/22/17 09:06 Freq: Status: Active Protocol: Document 10/22/17 13:02 [facility] (Rec: 10/22/17 13:07 [facility] [email or web address]) OP-PT Subjective Patient Comments Patient Comments noticing overall symptoms are better and has had to sit on hard surfaces without tailbone pain. PT-OP-F Manual Assessment Start: 07/22/17 09:06 Freq: Status: Active Protocol: Document 07/18/17 11:15 [facility] (Rec: 07/22/17 09:40 [facility] [email or web address]) Manual Assessments Soft Tissue Assessment Soft Tissue Mobility Assessment tightness of the piriformis right greater than left Joint Mobility Assessment Joint Mobility Assessment + ASLR test for SI instability L>R left leg longer in supine sacrum is rotated slightly to the left coccyx is sidebend to the left and flexed anteriorly PT-OP-J Posture/Palpation/Skin Start: 07/22/17 09:06 Freq: Status: Active Protocol: Document 07/18/17 11:15 [facility] (Rec: 07/22/17 09:38 [facility] [email or web address]) Palpation Assessment Location Two Palpation Location coccyx Palpation Findings Tenderness Palpation Details the coccyx is sidebend to the left and flexed anteriorly to papation One Palpation Location coccygeus muscle, obturator internus, piriformis Palpation Findings Soft Tissue Tightness Spasm Muscle Guarding Tenderness Palpation Details tenderness on either side of the coccyx and sacrum PT-OP-Q Treatments Start: 07/22/17 09:06 Freq: Status: Active Protocol: Document 10/22/17 13:02 [facility] (Rec: 10/22/17 13:07 [facility] [email or web address]) Manual Therapy Treatment Soft Tissue Mobilization 2 Body Location prone pifirmormis release on the left with pin and stretch Body Position Prone 1 Body Location prone release to the lumbar paraspinals and gluteals around the sacrum Body Position Prone Joint Mobilizations 3 Joint posterior capsule hip mobilization on the left 2 Joint hip distraction with active hip IR 1 Joint prone sacral realse into counter nutation Manual Techniques 1 Type manual piriformis stretch Comments with contract/relax PT-OP-R Modalities Start: 07/22/17 09:06 Freq: Status: Active Protocol: Document 08/14/17 10:45 [facility] (Rec: 08/15/17 11:39 [facility] [email or web address]) Ultrasound Therapy Treatment Left Treatment Duration (minutes) 8 Patient Position Prone Frequency Setting (mHz) 1 Mode Setting Continuous Intensity Setting (w/cm2) 1.5 Comments left lateral PRO attachments PT-OP-T Assessment and Plan Start: 07/22/17 09:06 Freq: Status: Active Protocol: Document 10/22/17 13:02 [facility] (Rec: 10/22/17 13:07 [facility] [email or web address]) Physical Therapy Assessment Assessment Summary Assessment right greater than left piriformis tightness, reminder to Sandra to continue to stretch out her iliopsoas as this tightness may be what is causing some hip pinching in full hip flexion Physical Therapy Plan Frequency and Duration Frequency of Treatment 1x/Week Duration of Treatment 8 weeks Plan of Care Start Date 09/17/17 Plan of Care End Date 11/12/17 Therapeutic Interventions Therapeutic Interventions Home Exercise Program Manual Therapy Neuromuscular Re-education Self-Care/Home Management Soft Tissue Mobilization Therapeutic Exercises Modalities Cold Pack/Ice Massage Ultrasound Next Visit Focus/Plan Next Note Type Treatment Note Next Visit Plan continue to focus on pelvic stabilization and core stabilization exercises as well as MFR for the tight pelvic floor.
--- NOTE | 2017-10-29 11:39 | PT.OTN ---
Current Diagnoses Sacrococcygeal disorders, not elsewhere classified (10/29/17) Physical Therapy Treatment Note PT-OP-A Visit Information Start: 07/22/17 09:06 Freq: Status: Active Protocol: Document 10/29/17 11:32 [facility] (Rec: 10/29/17 11:39 [facility] [email or web address]) Out-Patient Physical Therapy Visit Information Visit Information Visit Type Treatment Note Visit Start Time 09:45 Visit Stop Time 10:30 Total Visit Minutes 45 Visit Number 13 Number of PILLAR MAN Visits 0 PT-OP-B Current Condition Start: 07/22/17 09:06 Freq: Status: Active Protocol: Document 07/18/17 11:15 [facility] (Rec: 07/22/17 09:38 [facility] [email or web address]) Current Condition History of Current Condition Onset Date March Current Complaints complaints of coccyx pain made worse with sitting History of Current Condition Bianca reports she began experiencing coccyx pain during intercourse in March. She has been having pain since that has not improved. 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 She does have a donut cushion for driving now that helps. Melecio symptoms ahve progressed to hip and SI pain as well now and she notes that jumping activities with her legs seperated increase her hip pain. She reports that she has never experienced tail bone pain before this episode Prior Treatments and Tests X-ray findings suggestive of anterior angulation with mild widening of the inferior coccygeal segments Treatment Goals Patient/Caregiver Goals Sandra has a goal of eliminating coccyx pain and being able to sit and drive without pain Current Functional Impairments (Reported) Functional Limitations- Work/School difficulty sitting for long durations to study and pain with driving PT-OP-C Subjective Start: 07/22/17 09:06 Freq: Status: Active Protocol: Document 10/29/17 11:32 [facility] (Rec: 10/29/17 11:39 [facility] [email or web address]) OP-PT Subjective Patient Comments Patient Comments Bianca notes she experienced deep hip pain for a few days last week. This has improved. Overall coccyx pain is decreased and she no longer has pain with jumping activities. PT-OP-F Manual Assessment Start: 07/22/17 09:06 Freq: Status: Active Protocol: Document 07/18/17 11:15 [facility] (Rec: 07/22/17 09:40 [facility] [email or web address]) Manual Assessments Soft Tissue Assessment Soft Tissue Mobility Assessment tightness of the piriformis right greater than left Joint Mobility Assessment Joint Mobility Assessment + ASLR test for SI instability L>R left leg longer in supine sacrum is rotated slightly to the left coccyx is sidebend to the left and flexed anteriorly PT-OP-J Posture/Palpation/Skin Start: 07/22/17 09:06 Freq: Status: Active Protocol: Document 07/18/17 11:15 [facility] (Rec: 07/22/17 09:38 [facility] [email or web address]) Palpation Assessment Location Two Palpation Location coccyx Palpation Findings Tenderness Palpation Details the coccyx is sidebend to the left and flexed anteriorly to papation One Palpation Location coccygeus muscle, obturator internus, piriformis Palpation Findings Soft Tissue Tightness Spasm Muscle Guarding Tenderness Palpation Details tenderness on either side of the coccyx and sacrum PT-OP-Q Treatments Start: 07/22/17 09:06 Freq: Status: Active Protocol: Document 10/29/17 11:32 [facility] (Rec: 10/29/17 11:39 [facility] [email or web address]) Manual Therapy Treatment Soft Tissue Mobilization 2 Body Location prone pifirmormis release on the left with pin and stretch Body Position Prone 1 Body Location prone release to the lumbar paraspinals and gluteals around the sacrum Body Position Prone Joint Mobilizations 1 Joint prone sacral realse into counter nutation Self-Care/Home Management Treatment Education Patient Education Home Exercise Program Other Education Anatomy review of the piriformis muscle and how tightness can pull the sacrum out of alignment PT-OP-R Modalities Start: 07/22/17 09:06 Freq: Status: Active Protocol: Document 08/14/17 10:45 [facility] (Rec: 08/15/17 11:39 [facility] [email or web address]) Ultrasound Therapy Treatment Left Treatment Duration (minutes) 8 Patient Position Prone Frequency Setting (mHz) 1 Mode Setting Continuous Intensity Setting (w/cm2) 1.5 Comments left lateral PRO attachments PT-OP-T Assessment and Plan Start: 07/22/17 09:06 Freq: Status: Active Protocol: Document 10/29/17 11:32 [facility] (Rec: 10/29/17 11:39 [facility] [email or web address]) Physical Therapy Assessment Assessment Summary Assessment worked on reminders for HEP of piriformis stretching and then manual therapy release of the piriformis bilaterally. Leg lenth is equal today. Sandra still experiences pelvis unlocking with TA dynamic movement Physical Therapy Plan Frequency and Duration Frequency of Treatment 1x/Week Duration of Treatment 8 weeks Plan of Care Start Date 09/17/17 Plan of Care End Date 11/12/17 Therapeutic Interventions Therapeutic Interventions Home Exercise Program Manual Therapy Neuromuscular Re-education Self-Care/Home Management Soft Tissue Mobilization Therapeutic Exercises Modalities Cold Pack/Ice Massage Ultrasound Next Visit Focus/Plan Next Note Type Treatment Note Next Visit Plan continue to focus on pelvic stabilization and core stabilization exercises as well as MFR for the tight pelvic floor.
--- NOTE | 2018-01-08 11:19 | PT.OPDS ---
Current Diagnoses Sacrococcygeal disorders, not elsewhere classified (10/29/17) Provider Visit Care Team Role Provider Type Samantha Henry MD Attending Provider Physician Family Provider Primary Care Provider Specialty: Family Practice Address: [address] [place] [address], [facility] Email: [email or web address] Visit Number Visit Number 13 Discharge Summary PT-OP-B Current Condition Start: 07/22/17 09:06 Freq: Status: Active Protocol: Document 07/18/17 11:15 [facility] (Rec: 07/22/17 09:38 [facility] [email or web address]) Current Condition History of Current Condition Onset Date March Current Complaints complaints of coccyx pain made worse with sitting History of Current Condition Bianca reports she began experiencing coccyx pain during intercourse in March. She has been having pain since that has not improved. 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 She does have a donut cushion for driving now that helps. Melecio symptoms ahve progressed to hip and SI pain as well now and she notes that jumping activities with her legs seperated increase her hip pain. She reports that she has never experienced tail bone pain before this episode Prior Treatments and Tests X-ray findings suggestive of anterior angulation with mild widening of the inferior coccygeal segments Treatment Goals Patient/Caregiver Goals Sandra has a goal of eliminating coccyx pain and being able to sit and drive without pain Current Functional Impairments (Reported) Functional Limitations- Work/School difficulty sitting for long durations to study and pain with driving PT-OP-C Subjective Start: 07/22/17 09:06 Freq: Status: Active Protocol: Document 10/29/17 11:32 [facility] (Rec: 10/29/17 11:39 [facility] [email or web address]) OP-PT Subjective Patient Comments Patient Comments Bianca notes she experienced deep hip pain for a few days last week. This has improved. Overall coccyx pain is decreased and she no longer has pain with jumping activities. PT-OP-F Manual Assessment Start: 07/22/17 09:06 Freq: Status: Active Protocol: Document 07/18/17 11:15 [facility] (Rec: 07/22/17 09:40 [facility] [email or web address]) Manual Assessments Soft Tissue Assessment Soft Tissue Mobility Assessment tightness of the piriformis right greater than left Joint Mobility Assessment Joint Mobility Assessment + ASLR test for SI instability L>R left leg longer in supine sacrum is rotated slightly to the left coccyx is sidebend to the left and flexed anteriorly PT-OP-J Posture/Palpation/Skin Start: 07/22/17 09:06 Freq: Status: Active Protocol: Document 07/18/17 11:15 [facility] (Rec: 07/22/17 09:38 [facility] [email or web address]) Palpation Assessment Location Two Palpation Location coccyx Palpation Findings Tenderness Palpation Details the coccyx is sidebend to the left and flexed anteriorly to papation One Palpation Location coccygeus muscle, obturator internus, piriformis Palpation Findings Soft Tissue Tightness Spasm Muscle Guarding Tenderness Palpation Details tenderness on either side of the coccyx and sacrum PT-OP-T Assessment and Plan Start: 07/22/17 09:06 Freq: Status: Active Protocol: Document 01/08/18 11:16 [facility] (Rec: 01/08/18 11:19 [facility] [email or web address]) Physical Therapy Assessment Assessment Summary Assessment Sandra was last seen in PT on 10/29/17. She was getting ready for a temporary move out of the country. Overall she was doing much better in PT and pain levels in the tailbone region were reduced. Sandra was independent with her home program at the time of Discharge Physical Therapy Plan Discharge Physical Therapy Discharge Comments Sandra was getting ready to go on a extended trip out of the country at the time of her last PT visit.
== END 2018-05-21 08:58 ==
LOC: PHYS 09:45
PROVIDERS: Family Provider Family Medicine; PCP Family Medicine; Visit Provider Family Medicine
DX: M53.3 Sacrococcygeal disorders, not elsewhere classified (principal)
CPT/HCPCS: 97035; 97110; 97112; 97140; 97161; 97535

== ENCOUNTER → 2021-02-22 10:39 | Outpatient (CLI) | payer OTHER, SELFPAY ==
--- NOTE | 2021-02-22 10:41 | DI.US.S_ITS ---
PROCEDURE: US PELVIC COMPLETE INDICATIONS: pelvic pain, hx with cyst TECHNIQUE: Real-time scanning was performed of the pelvic organs, with image documentation. Additional endovaginal scanning was necessary due to incomplete visualization of the adnexal and endometrial structures by transabdominal scanning. COMPARISON: [facility], US, PELVIC COMPLETE, 10/05/2014, 2:18. FINDINGS: Uterus: Uterus is anteverted and normal in size at 7.9 x 3.1 x 4.5 cm. The myometrium is homogeneous. Mild arcuate uterine morphology present. The endometrium measures 4.4 mm combined thickness. No endometrial or myometrial mass seen. Ovaries: Right ovary measures 4.8 x 2.5 x 2.4 cm and the left ovary measures 7.0 x 4.2 x 5.3 cm. Simple left ovarian cyst measuring 6.9 x 4.2 x 4.8 cm. Other: No pathologic free abdominal or pelvic fluid. IMPRESSION: 1. Simple left ovarian cyst measuring up to 6.9 cm. Given the large size, patient is at increased risk for spontaneous ovarian torsion and short-term follow-up pelvic ultrasound in 6-12 weeks is recommended. 2. Mild arcuate uterine morphology. We strive to produce accurate, complete, and clear reports of imaging services. To assist us in improving patient care, this report was composed using standard report templates and voice recognition software. Therefore, it may contain abnormal punctuation, insertions and/or omissions. Occasional wrong-word or sound-alike substitutions may occur. Though we review the report and make efforts to correct it, we do recommend that the report be read carefully in proper context to recognize any text inaccuracies. Dictated by: Andrea HOFFMAN Interpreted: Bakari Blancas MD on 02/22/2021 at 14:07 Transcribed by: SHANDRA on 02/22/2021 at 14:11 Approved by: Bakari Blancas M.D. on 03/01/2021 at 12:55
--- NOTE | 2021-02-22 10:41 | DI.US.S_ITS ---
ULTRASOUND OF RIGHT BREAST: 02/22/2021 CLINICAL: Palpable right breast lumps. No prior exams were available for comparison. Color flow and real-time ultrasound of the right breast were performed. Raymundo scale images of the real-time examination were reviewed. There are multiple benign oval masses with microlobulated margins in the right breast inferior medial quadrant posterior depth. These oval masses are hypoechoic with no posterior acoustic shadowing or enhancement. IMPRESSION: BENIGN There is no sonographic evidence of malignancy. The multiple oval masses in the right breast are consistent with fibroadenomas and are benign. This exam was interpreted at Station ID: [id number]. Electronically Signed By: Rohit Blackwell M.D. jr/:02/22/2021 12:17:11 letter sent: Normal Exam Ultrasound BI-RADS: 2 Benign
--- NOTE | 2021-02-22 10:41 | DI.US.S_ITS ---
LIMITED ULTRASOUND OF LEFT BREAST: 02/22/2021 CLINICAL: Palpable left breast lump. No prior exams were available for comparison. Color flow and real-time ultrasound of the left breast were performed. Raymundo scale images of the real-time examination were reviewed. There are multiple hypoechoic oval masses with circumscribed and microlobulated margins in the left breast. No significant abnormalities were seen sonographically in the left breast. IMPRESSION: BENIGN There is no sonographic evidence of malignancy. Multiple oval masses in the left breast are consistent with fibroadenomas and are benign. This exam was interpreted at Station ID: [id number]. Electronically Signed By: Rohit Blackwell M.D. jr/:02/22/2021 12:18:42 Entry: [facility] 02/23/2021 08:21:26 Ultrasound BI-RADS: 2 Benign
== END ==
PROVIDERS: PCP Family Medicine; Referring Provider Physician Assistant; Visit Provider Physician Assistant
DX: D24.1 Benign neoplasm of right breast; D24.2 Benign neoplasm of left breast; N83.291 Other ovarian cyst, right side; Q51.810 Arcuate uterus; R10.2 Pelvic and perineal pain
CPT/HCPCS: 76642; 76830; 76856

== ENCOUNTER → 2021-05-18 09:38 | Outpatient (CLI) | payer OTHER, SELFPAY ==
--- NOTE | 2021-05-18 09:39 | DI.US.S_ITS ---
PROCEDURE: US PELVIC COMPLETE INDICATIONS: MONITOR SIZE OF OVARIAN CYST TECHNIQUE: Real-time scanning was performed of the pelvic organs, with image documentation. Additional endovaginal scanning was necessary due to incomplete visualization of the adnexal and endometrial structures by transabdominal scanning. COMPARISON: [facility], US, US PELVIC COMPLETE, 02/22/2021, 12:13. FINDINGS: Uterus: Arcuate uterus is noted and measures 7.1 x 3.2 x 4.5 cm in size. The myometrium is homogeneous. The endometrium measures 6.8 mm combined thickness. No endometrial mass or fluid. Ovaries: The right ovary measures 5.1 x 2.9 x 1.9 cm. The left ovary measures 7.6 x 4.7 x 6.2 cm. The ovaries have a normal sonographic appearance. Less than 12 follicles can be seen in each ovary. Bilateral ovarian cysts are seen measures up to 6.4 x 4.5 x 5.3 cm in size in left ovary compared to 6.9 x 4.2 x 4.8 cm on previous study. No adnexal masses are seen. Other: No pathologic free abdominal or pelvic fluid. IMPRESSION: 1. Patient's known left ovarian cyst is not significantly changed in size and appearance. No solid appearing ovarian lesion. 2. Arcuate uterus. No discrete uterine fibroid. No endometrial mass or fluid. We strive to produce accurate, complete, and clear reports of imaging services. To assist us in improving patient care, this report was composed using standard report templates and voice recognition software. Therefore, it may contain abnormal punctuation, insertions and/or omissions. Occasional wrong-word or sound-alike substitutions may occur. Though we review the report and make efforts to correct it, we do recommend that the report be read carefully in proper context to recognize any text inaccuracies. Dictated by: Rigoberto Locke M.D. on 05/18/2021 at 10:49 Approved by: Rigoberto Locke M.D. on 05/18/2021 at 11:02
== END ==
PROVIDERS: PCP Physician Assistant; Referring Provider Physician Assistant; Visit Provider Physician Assistant
DX: N83.202 Unspecified ovarian cyst, left side (principal); Q51.810 Arcuate uterus
CPT/HCPCS: 76830; 76856

== ENCOUNTER → 2021-05-29 09:59 | Outpatient (CLI) | payer OTHER, SELFPAY ==
[2021-05-29 13:15] LABS: COVID-19 CEPHEID PCR (VTM/NP) POSITIVE (Negative)
== END ==
PROVIDERS: PCP Physician Assistant; Visit Provider Family Medicine Sleep Medicine
DX: U07.1 COVID-19 (principal); Z20.822 Contact with and (suspected) exposure to COVID-19
CPT/HCPCS: C9803; U0003; U0005

== ENCOUNTER → 2021-06-28 10:14 | Outpatient (CLI) | payer BC, SELFPAY ==
[2021-06-28 13:32] LABS: COVID-19 CEPHEID PCR (VTM/NP) Negative (Negative)
== END ==
PROVIDERS: PCP Physician Assistant; Visit Provider Family Medicine Sleep Medicine
DX: Z20.822 Contact with and (suspected) exposure to COVID-19 (principal)
CPT/HCPCS: C9803; U0003; U0005

== ENCOUNTER → 2021-09-06 15:20 | Outpatient (CLI) | payer OTHER, SELFPAY ==
[2021-09-06 16:53] LABS: Alanine Aminotransferase 20 IU/L (<35); Albumin 5.2 g/dL (3.5-5.0); Albumin Globulin Ratio 1.5 (1.0-2.8); Alkaline Phosphatase 58 U/L (38-126); Aspartate Aminotransferase 28 IU/L (14-36); BUN Creatinine Ratio 19.4 (6-22); Bilirubin Total 0.6 mg/dL (0.2-1.3); Blood Urea Nitrogen 12 mg/dL (7-17); Calcium 9.5 mg/dL (8.4-10.2); Carbon Dioxide 25 mmol/L (22-32); Chloride 105 mmol/L (98-107); Estimated Glomerular Filt Rate > 60 mL/min (>60); Globulin 3.4 g/dL (1.7-4.1); Glucose 72 mg/dL (70-100); HEMOLYSIS < 15 (0-50); Potassium 3.6 mmol/L (3.4-5.1); Sodium 141 mmol/L (137-145); Total Protein 8.6 g/dL (6.3-8.2)
== END ==
PROVIDERS: PCP Obstetrics & Gynecology; Referring Provider Obstetrics & Gynecology; Visit Provider Obstetrics & Gynecology
DX: K76.9 Liver disease, unspecified (principal)
CPT/HCPCS: 36415; 80053

== ENCOUNTER → 2024-08-16 13:26 | Outpatient (CLI) | payer OTHER, SELFPAY ==
[2024-08-16 14:22] LABS: Influenza A - CEPHEID Flu A NEGATIVE (NEGATIVE); Influenza B - CEPHEID Flu B POSITIVE (NEGATIVE); Respiratory Syncytial Virus Negative (Negative)
[2024-08-16 14:23] LABS: COVID-19 CEPHEID 4-PLEX PCR Negative (Negative)
== END ==
LOC: LAB 13:26
PROVIDERS: PCP Obstetrics & Gynecology; Visit Provider Nurse Practitioner Family
DX: R05.1 Acute cough (principal)
CPT/HCPCS: 0241U

== ENCOUNTER → 2024-08-16 13:54 | Outpatient (CLI) | payer OTHER, SELFPAY ==
--- NOTE | 2024-08-16 13:55 | DI.RAD.S_ITS ---
PROCEDURE: XR CHEST 2V INDICATIONS: Cough TECHNIQUE: 2 views of the chest were acquired. COMPARISON: None. FINDINGS: Surgical changes and devices: None. Lungs and pleura: Lungs are clear. No pleural effusions or pneumothorax. Mediastinum: Mediastinal contours are normal. Heart size is normal. Bones and chest wall: No suspicious bony abnormalities. Soft tissues appear unremarkable. IMPRESSION: No acute cardiopulmonary pathology. Dictated by: Rigoberto Locke M.D. on 08/16/2024 at 20:27 Approved by: Rigoberto Locke M.D. on 08/16/2024 at 20:28
== END ==
LOC: RAD 13:55
PROVIDERS: PCP Obstetrics & Gynecology; Referring Provider Nurse Practitioner Family; Visit Provider Nurse Practitioner Family
DX: R05.1 Acute cough (principal)
CPT/HCPCS: 0241U; 71046

== ENCOUNTER → 2025-03-01 11:20 | Outpatient (CLI) | payer OTHER, SELFPAY ==
[2025-03-01 12:32] LABS: Add Manual Diff / Slide Review NO; Hematocrit 42.0 % (36-46); Hemoglobin 14.4 g/dL (12.0-16.0); Lymphocytes Absolute Auto 1900 /uL (1100-4500); Mean Corpuscular HGB Conc 34.4 % (30-36); Mean Corpuscular Hemoglobin 29.9 PG (26-34); Mean Corpuscular Volume 87.0 fL (80-100); Platelet Count 244 X10^3/uL (150-400)
[2025-03-01 12:46] LABS: Alanine Aminotransferase 17 IU/L (<35); Albumin 4.9 g/dL (3.5-5.0); Albumin Globulin Ratio 1.6 (1.0-2.8); Alkaline Phosphatase 48 U/L (38-126); Blood Urea Nitrogen 13 mg/dL (7-17); Calcium 9.5 mg/dL (8.4-10.2); Carbon Dioxide 25 mmol/L (22-32); Chloride 105 mmol/L (98-107); Cholesterol 146 mg/dL (140-199); Estimated Glomerular Filt Rate > 60 mL/min (>60); Globulin 3.0 g/dL (1.7-4.1); Glucose 75 mg/dL (70-99); HDL Cholesterol 88 mg/dL (40-60); HEMOLYSIS < 15 (0-50); Potassium 4.1 mmol/L (3.4-5.1); Sodium 138 mmol/L (137-145); Total Protein 7.9 g/dL (6.3-8.2); Triglycerides 69 mg/dL (35-150)
[2025-03-01 13:03] LABS: Free T3, Triiodothyronine Free 3.48 pg/mL (2.77-5.27)
[2025-03-01 13:17] LABS: TSH w/ Reflex to FT4 1.12 uIU/mL (0.47-4.68); Thyroid Stimulating Hormone 1.12 uIU/mL (0.47-4.68)
[2025-03-01 13:22] LABS: Ferritin 34 ng/mL (6-137)
== END ==
PROVIDERS: PCP Naturopath; Referring Provider Naturopath; Visit Provider Naturopath
DX: E04.9 Nontoxic goiter, unspecified (principal); N83.202 Unspecified ovarian cyst, left side; R53.83 Other fatigue; Z00.00 Encounter for general adult medical examination without abnormal findings; Z87.410 Personal history of cervical dysplasia
CPT/HCPCS: 36415; 80053; 80061; 82728; 84443; 84481; 85025; 86376